=== PATIENT | female | born 1995 | race African-American/Black ===

== ENCOUNTER 2023-05-31 22:28 | Emergency (ER) | payer BC ==
[2023-05-31 23:20] LABS: SARS-CoV-2 NAA Rapid Test Not Detected (NotDetected)
== END 2023-05-31 23:32 | disposition home or self-care (01) ==
LOC: BURERS 22:28
DX: O99.512 Diseases of the respiratory system complicating pregnancy, second trimester (principal); B34.9 Viral infection, unspecified; Z3A.18 18 weeks gestation of pregnancy
CPT/HCPCS: 99283